=== PATIENT | female | born 1960 | race Caucasian/White ===

== ENCOUNTER 2019-06-23 11:44 | Inpatient (IN) | payer MEDICAID, OTHER ==
[~2019-06-23] VITALS: Ht 172.7 cm; Wt 69.0 kg
[2019-06-23] MEDS ORDERED: SODIUM CHLORIDE 0.9% 1,000 ML IV ONE ×2 (12:10→16:00)
[2019-06-23] MEDS ORDERED: SODIUM CHLORIDE 0.9% 1,000 ML IVB ONE (12:10)
[2019-06-23] MEDS ORDERED: MORPHINE SULFATE 4 MG/ML SYR/VIAL IV ONE (12:15)
[2019-06-23] MEDS ORDERED: ONDANSETRON HCL 4 MG/2 ML VIAL IV ONE (12:15)
[2019-06-23 12:56] LABS: Basophils # (auto) 0 uL; Eosinophils # (auto) 0.1 uL; Lymphocytes # (auto) 1.6 uL; Neutrophils # (auto) 5.1 uL; Red Blood Cells 5.62 10^6/uL (4.0-5.20); White Blood Cell 7.5 10^3/uL (4.4-10.8)
[2019-06-23 12:58] LABS: Basophils % (auto) 0.3 % (0.0-2.0); Eosinophils % (auto) 0.8 % (0.0-7.0); Hematocrit 54.7 % (36.0-46.0); Hemoglobin 18.6 g/dL (12.2-16.2); Lymphocytes % (auto) 21.3 % (10.0-50.0); Mean Corpuscular Hemoglobin 33.2 pg (28.0-32.0); Mean Corpuscular Hgb Conc. 34.1 g/dL (32.0-36.0); Mean Corpuscular Volume 97.3 fL (80.0-100.0); Monocytes # (auto) 0.7 uL; Monocytes % (auto) 9.6 % (0.0-12.0); Nucleated Red Blood Cells % 0.2 %; Platelet Count (auto) 361 10^3/uL (140-450)
[2019-06-23 13:11] LABS: Urine Bacteria NONE SEEN /hpf (None Seen); Urine Blood TRACE /uL (Negative); Urine Hyaline Cast MOD /lpf (0 - 2); Urine Mucus FEW (None Seen); Urine Specific Gravity 1.031 (1.001-1.035); Urine WBC 4 /hpf (0 - 5)
[2019-06-23] MEDS ORDERED: cefTRIAXone W LIDOCAINE 1 GM IM IM ONE (14:30)
[2019-06-23] MEDS ORDERED: cefTRIAXone 1GM/50ML D5W 50 ML IV ONE (14:45)
[2019-06-23] MEDS ORDERED: MORPHINE SULF INJ 2 MG/ML SYRINGE 1ML IV PRN (15:15)
[2019-06-23] MEDS ORDERED: NITROGLYCERIN 0.4 MG SL TAB SL PRN (15:15)
[2019-06-23] MEDS ORDERED: LORazepam 2MG/ML-1ML VIAL IV PRN (15:15)
[2019-06-23] MEDS ORDERED: LORazepam 2MG/ML-1ML VIAL IV ONE (15:15)
[2019-06-23] MEDS ORDERED: ONDANSETRON HCL 4 MG/2 ML VIAL IV PRN (15:15)
[2019-06-23] MEDS ORDERED: LORazepam 2MG/ML-1ML VIAL ONE (15:17)
[2019-06-23] MEDS: SODIUM CHLORIDE 0.9% 1,000 ML IV SCH ×2 (15:30→21:23)
[2019-06-23] MEDS ORDERED: NICOTINE 21MG/24 HR TOPICAL PATCH TD ONE (16:00)
[2019-06-23 16:19] LABS: Amylase 62 U/L (25-115); Anion Gap 12 (5-15); BUN/Creatinine Ratio 16.8; Blood Urea Nitrogen 20 mg/dL (7-18); Calcium 9.7 mg/dL (8.5-10.1); Carbon Dioxide 18 mmol/L (21-32); Chloride 107 mmol/L (98-107); GFR African American 60 mL/min; GFR Non-African American 49 mL/min; Glucose 133 mg/dL (74-106); Lipase 99 U/L (73-393); Sodium 137 mmol/L (136-145)
[2019-06-23 16:22] LABS: Alanine Aminotransferase 40 U/L (13-56); Alkaline Phosphatase 136 U/L (45-117); Aspartate Aminotransferase 35 U/L (15-37); Bilirubin, Total 1.1 mg/dL (0.2-1.0); Total Protein 8.3 g/dL (6.4-8.2)
[2019-06-23 16:25] LABS: Lactic Acid w/Reflex 2.4 mmol/L (0.4-2.0)
--- NOTE | 2019-06-23 20:00 | NUR ---
MS admit from ER CLAIRE NICOLE admitted to tele/MS after SBAR received. Patient oriented to Brittney Owens, RN primary RN, unit, room, bed, and unit policies regarding patient care and visiting hours. Patient weighed by bedscale and encouraged to call if they need something. All questions and concerns addressed, patient verbalized understanding. Note:
[2019-06-23 21:00] VITALS: BP 146/83
--- NOTE | 2019-06-23 21:09 | NUR ---
Clarified order with hospitalist CAROLE Johnson to [facility]
[2019-06-23] MEDS: FAMOTIDINE (10MG/ML) 2ML VL IV SCH (21:23)
--- NOTE | 2019-06-23 23:19 | NUR ---
MED REC Pt unable to recall medication name for arthritis, friend to bring in list tomorrow.
[2019-06-23 23:27] VITALS: BP 146/83
--- NOTE | 2019-06-24 02:04 | NUR ---
Rounds Patient sleeping, respirations even and unlabored on room air, NGT to left nare to LIS, IV fluids running 0.9% NS at 125 ml/hr. No S/S of distress/SOB or pain. Will continue to monitor changes q1hr and PRN. Call light within reach,bed in lowest locked position. Bed alarm on.
[2019-06-24 05:09] VITALS: BP 143/73
[2019-06-24] MEDS: MORPHINE SULF INJ 2 MG/ML SYRINGE 1ML IV PRN ×2 (06:46→15:21)
[2019-06-24] MEDS: SODIUM CHLORIDE 0.9% 1,000 ML IV SCH ×3 (06:47→22:02)
[2019-06-24 07:23] LABS: Basophils # (auto) 0 uL; Basophils % (auto) 0.7 % (0.0-2.0); Eosinophils # (auto) 0.1 uL; Eosinophils % (auto) 2.5 % (0.0-7.0); Hematocrit 46.5 % (36.0-46.0); Hemoglobin 15.5 g/dL (12.2-16.2); Lymphocytes # (auto) 0.7 uL; Lymphocytes % (auto) 17.4 % (10.0-50.0); Mean Corpuscular Hemoglobin 32.8 pg (28.0-32.0); Mean Corpuscular Hgb Conc. 33.3 g/dL (32.0-36.0); Mean Corpuscular Volume 98.7 fL (80.0-100.0); Monocytes # (auto) 0.5 uL; Monocytes % (auto) 13.3 % (0.0-12.0); Neutrophils # (auto) 2.7 uL; Neutrophils % (auto) 66.1 % (37.0-80.0); Platelet Count (auto) 267 10^3/uL (140-450); Red Blood Cells 4.71 10^6/uL (4.0-5.20); Red Cell Distribution Width 14.2 % (11.8-14.3)
[2019-06-24 07:42] LABS: Albumin 3.4 g/dL (3.4-5.0); Calcium 8.7 mg/dL (8.5-10.1); Potassium 3.6 mmol/L (3.5-5.1)
[2019-06-24 07:46] LABS: Bilirubin, Total 0.6 mg/dL (0.2-1.0); Total Protein 6.7 g/dL (6.4-8.2)
--- NOTE | 2019-06-24 08:00 | NUR ---
OPENING SHIFT NOTE ASSUMED CARE OF PT. NO SOB OR SIGNS OF DISTRESS NOTED. INSTRUCTED ON POC AND TO CALL FOR HELP PRN. BED IN LOWEST POSITION WITH SIDE RAILS UP X2. WILL CONTINUE TO MONITOR.
[2019-06-24] MEDS ORDERED: GASTROGRAFIN 120 ML SOL ONE (08:15)
[2019-06-24] MEDS: LORazepam 2MG/ML-1ML VIAL IV PRN ×2 (08:50→18:04)
[2019-06-24 09:00] VITALS: BP 124/77
[2019-06-24] MEDS ORDERED: cefTRIAXone 1GM/50ML D5W 50 ML IV SCH (09:00)
[2019-06-24] MEDS ORDERED: NICOTINE 21MG/24 HR TOPICAL PATCH TD SCH (10:00)
[2019-06-24] MEDS: FAMOTIDINE (10MG/ML) 2ML VL IV SCH ×2 (10:14→22:01)
[2019-06-24 13:00] VITALS: BP 156/79
[2019-06-24 17:00] VITALS: BP 146/79
[2019-06-24 20:00] VITALS: BP 142/66
--- NOTE | 2019-06-24 20:00 | NUR ---
Opening Shift Note Assumed care of patient, patient sleeping, respirations even and unlabored. No S/S of distress/SOB or pain. NG to LIS. Will continue to monitor for changes Q1hr and PRN.
--- NOTE | 2019-06-24 20:05 | NUR ---
Called/paged Dr. Vela called re:report sbo series results per request . Waiting for call back. Continue care.
--- NOTE | 2019-06-24 20:08 | NUR ---
returned call Dr. Vela returned call, updated on results of sbo series, partial sbo, pt had multiple bowel movements today, no orders received. states he tangela see patient tomorrow. Continue care.
[2019-06-24 22:00] VITALS: BP 142/66
--- NOTE | 2019-06-25 01:47 | NUR ---
Patient bathe/linen change Patient given partial bath for bowel incontinence, gown changed. Skin integrity assessed for any changes. Linens changed. Patient repositioned for comfort.
[2019-06-25] MEDS: LORazepam 2MG/ML-1ML VIAL IV PRN (01:54)
[2019-06-25 05:13] VITALS: BP 137/85
[2019-06-25 07:10] LABS: Basophils # (auto) 0 uL; Basophils % (auto) 0.3 % (0.0-2.0); Eosinophils # (auto) 0.2 uL; Eosinophils % (auto) 3.1 % (0.0-7.0); Hematocrit 42.9 % (36.0-46.0); Hemoglobin 14.4 g/dL (12.2-16.2); Mean Corpuscular Hemoglobin 33.4 pg (28.0-32.0); Mean Corpuscular Hgb Conc. 33.6 g/dL (32.0-36.0); Mean Corpuscular Volume 99.2 fL (80.0-100.0); Monocytes # (auto) 0.6 uL; Monocytes % (auto) 13.2 % (0.0-12.0); Neutrophils % (auto) 62.4 % (37.0-80.0); Nucleated Red Blood Cells % 0.1 %; Platelet Count (auto) 263 10^3/uL (140-450); Red Blood Cells 4.32 10^6/uL (4.0-5.20); White Blood Cell 4.8 10^3/uL (4.4-10.8)
[2019-06-25 07:43] LABS: Potassium 3.4 mmol/L (3.5-5.1)
[2019-06-25 07:49] LABS: BUN/Creatinine Ratio 23.8; Calcium 8.8 mg/dL (8.5-10.1); Magnesium 2.6 mg/dL (1.6-2.6)
--- NOTE | 2019-06-25 07:50 | NUR ---
Patient want to go AMA, paper signed by patient, Silvia DOBBINS made aware.
--- NOTE | 2019-06-25 07:53 | NUR ---
Unable to paged Dr. Virgen right now, will paged after 9 AM regarding patient wants to go AMA.
--- NOTE | 2019-06-25 08:27 | NUR ---
AMA Note CLAIRE NICOLE states they want to leave the hospital Against Medical Advice (AMA). Patient encouraged to stay for further treatment/stabilization. Patient advised of the risks and benefits of leaving AMA. Patient verbalized understanding. Patient encouraged to return to the ER if symptoms do not improve or worsen.
--- NOTE | 2019-06-25 09:10 | NUR ---
Dr. Virgen paged regarding patient left AMA, awaiting to call back.
== END 2019-06-25 08:38 | disposition left against medical advice (07) | DRG 247 ==
LOC: ER 11:44 → OVERFLOW 11:45 → WEST WING 20:00
PROVIDERS: ADMIT Nurse Practitioner Acute Care; ATTEND Internal Medicine
DX: K56.600 Partial intestinal obstruction, unspecified as to cause (principal); N17.0 Acute kidney failure with tubular necrosis; N30.00 Acute cystitis without hematuria; E86.0 Dehydration; F41.9 Anxiety disorder, unspecified; Z53.29 Procedure and treatment not carried out because of patient's decision for other reasons; F17.210 Nicotine dependence, cigarettes, uncomplicated; J44.9 Chronic obstructive pulmonary disease, unspecified
CPT/HCPCS: 36415; 71045; 74176; 74250; 80048; 80053; 81001; 82150; 83605; 83690; 83735; 85025; 87040; 87086; 96361; 96365; 96375; G0378; J0696; J2405; J3490

== ENCOUNTER 2020-11-13 23:42 | Inpatient (IN) | payer MEDICAID ==
[~2020-11-13] VITALS: Ht 172.7 cm; Wt 74.2 kg
[2020-11-14 00:21] LABS: Basophils # (auto) 0.1 10 ^3/uL (0-0.2); Basophils % (auto) 0.7 % (0.0-2.0); Eosinophils # (auto) 0.1 10 ^3/uL (0-0.8); Hematocrit 51.7 % (36.0-46.0); Hemoglobin 17.6 g/dL (12.2-16.2); Lymphocytes # (auto) 1.5 10 ^3/uL (0.4-5.4); Lymphocytes % (auto) 15.4 % (10.0-50.0); Mean Corpuscular Hemoglobin 32.8 pg (28.0-32.0); Mean Corpuscular Hgb Conc. 34.1 g/dL (32.0-36.0); Mean Corpuscular Volume 96.2 fL (80.0-100.0); Monocytes # (auto) 0.8 10 ^3/uL (0-1.3); Monocytes % (auto) 8.4 % (0.0-12.0); Neutrophils % (auto) 74.5 % (37.0-80.0); Nucleated Red Blood Cells % 0.1 %; Platelet Count (auto) 353 10^3/uL (140-450); Red Blood Cells 5.37 10^6/uL (4.0-5.20); Red Cell Distribution Width 13.2 % (11.8-14.3); White Blood Cell 9.5 10^3/uL (4.4-10.8)
[2020-11-14 00:37] LABS: Urine Bacteria FEW /hpf (None Seen); Urine Blood 1+ /uL (Negative); Urine Hyaline Cast FEW /lpf (0 - 2); Urine Mucus FEW (None Seen); Urine Specific Gravity 1.026 (1.001-1.035); Urine WBC 4 /hpf (0 - 5)
[2020-11-14 00:38] LABS: Partial Thromboplastin Time 29.6 sec (23.0-31.2)
[2020-11-14 00:59] LABS: Albumin 4.1 g/dL (3.4-5.0); Calcium 9.3 mg/dL (8.5-10.1)
[2020-11-14] MEDS ORDERED: fentaNYL CITRATE 100 MCG/2 ML VL IV ONE (01:15)
[2020-11-14] MEDS ORDERED: ONDANSETRON HCL 4 MG/2 ML VIAL IV ONE (01:15)
[2020-11-14] MEDS ORDERED: SODIUM CHLORIDE 0.9% 1,000 ML IV ONE ×2 (01:15→05:30)
[2020-11-14 01:23] LABS: BUN/Creatinine Ratio 15.1; Bilirubin, Total 0.8 mg/dL (0.2-1.0); Total Protein 7.6 g/dL (6.4-8.2)
[2020-11-14] MEDS: SODIUM CHLORIDE 0.9% 1,000 ML IV SCH ×2 (01:30→12:45)
[2020-11-14] MEDS ORDERED: HYDROmorphone HCL 2 MG/ML VL IV ONE ×2 (03:15)
[2020-11-14] MEDS ORDERED: IOHEXOL 300 MG/ML 100ML BOTTLE IJ ONE (03:17)
[2020-11-14] MEDS ORDERED: MORPHINE SULF INJ 2 MG/ML SYRINGE 1ML IV PRN (07:00)
[2020-11-14] MEDS ORDERED: SODIUM CHLORIDE 0.9% 1,000 ML IV SCH (07:00)
[2020-11-14] MEDS ORDERED: NITROGLYCERIN 0.4 MG SL TAB SL PRN (07:00)
[2020-11-14] MEDS ORDERED: ACETAMINOPHEN 325 MG TAB PO PRN (07:00)
[2020-11-14] MEDS: ONDANSETRON HCL 4 MG/2 ML VIAL IV PRN ×3 (07:37→17:17)
[2020-11-14] MEDS: HYDROmorphone HCL 2 MG/ML VL IV PRN ×4 (07:37→21:20)
[2020-11-14 10:00] VITALS: BP 133/69
[2020-11-14] MEDS ORDERED: PANTOPRAZOLE 40 MG/10 ML VIAL INJ IV SCH (10:00)
[2020-11-14] MEDS ORDERED: ENOXAPARIN SOD 40 MG/0.4 ML SYRINGE SC SCH (10:00)
[2020-11-14] MEDS ORDERED: INFLUENZA QUAD 2020-2021 0.5 ML SYRG IM ONE (10:45)
[2020-11-14 11:00] LABS: Basophils # (auto) 0 10 ^3/uL (0-0.2); Basophils % (auto) 0.3 % (0.0-2.0); Eosinophils # (auto) 0 10 ^3/uL (0-0.8); Eosinophils % (auto) 1.3 % (0.0-7.0); Hematocrit 44.3 % (36.0-46.0); Hemoglobin 15.3 g/dL (12.2-16.2); Lymphocytes # (auto) 0.4 10 ^3/uL (0.4-5.4); Lymphocytes % (auto) 11.3 % (10.0-50.0); Mean Corpuscular Hemoglobin 33.4 pg (28.0-32.0); Mean Corpuscular Hgb Conc. 34.6 g/dL (32.0-36.0); Mean Corpuscular Volume 96.3 fL (80.0-100.0); Monocytes # (auto) 0.5 10 ^3/uL (0-1.3); Monocytes % (auto) 14.2 % (0.0-12.0); Neutrophils # (auto) 2.4 10 ^3/uL (1.6-8.6); Neutrophils % (auto) 72.9 % (37.0-80.0); Nucleated Red Blood Cells % 0.2 %; Platelet Count (auto) 295 10^3/uL (140-450); Red Cell Distribution Width 13.6 % (11.8-14.3); White Blood Cell 3.3 10^3/uL (4.4-10.8)
[2020-11-14 11:04] LABS: Albumin 3.3 g/dL (3.4-5.0); Calcium 8.6 mg/dL (8.5-10.1); Potassium 4.1 mmol/L (3.5-5.1)
[2020-11-14 11:11] LABS: BUN/Creatinine Ratio 16.2; Bilirubin, Total 0.8 mg/dL (0.2-1.0); Total Protein 6.4 g/dL (6.4-8.2)
[2020-11-14] MEDS ORDERED: LORazepam 2MG/ML-1ML VIAL IV ONE (12:30)
[2020-11-14] MEDS ORDERED: GASTROGRAFIN 120 ML SOL ONE (12:51)
[2020-11-14 17:00] VITALS: BP 137/73
[2020-11-14 20:00] VITALS: BP 156/72
[2020-11-14 22:00] VITALS: BP 156/72
[2020-11-15] MEDS: SODIUM CHLORIDE 0.9% 1,000 ML IV SCH (01:30)
[2020-11-15] MEDS: HYDROmorphone HCL 2 MG/ML VL IV PRN (03:10)
[2020-11-15 05:25] VITALS: BP 141/70
[2020-11-15 05:33] LABS: Basophils # (auto) 0 10 ^3/uL (0-0.2); Basophils % (auto) 0.2 % (0.0-2.0); Eosinophils # (auto) 0.2 10 ^3/uL (0-0.8); Eosinophils % (auto) 3.4 % (0.0-7.0); Hemoglobin 14.1 g/dL (12.2-16.2); Lymphocytes % (auto) 17.7 % (10.0-50.0); Mean Corpuscular Hemoglobin 33.9 pg (28.0-32.0); Mean Corpuscular Hgb Conc. 34.4 g/dL (32.0-36.0); Mean Corpuscular Volume 98.5 fL (80.0-100.0); Monocytes # (auto) 0.7 10 ^3/uL (0-1.3); Monocytes % (auto) 11.6 % (0.0-12.0); Neutrophils # (auto) 3.9 10 ^3/uL (1.6-8.6); Neutrophils % (auto) 67.1 % (37.0-80.0); Platelet Count (auto) 256 10^3/uL (140-450); Red Blood Cells 4.17 10^6/uL (4.0-5.20); Red Cell Distribution Width 13.7 % (11.8-14.3); White Blood Cell 5.8 10^3/uL (4.4-10.8)
[2020-11-15 05:55] LABS: Albumin 2.9 g/dL (3.4-5.0); Calcium 8.2 mg/dL (8.5-10.1); Potassium 3.6 mmol/L (3.5-5.1)
[2020-11-15 05:59] LABS: BUN/Creatinine Ratio 16.9; Bilirubin, Total 0.5 mg/dL (0.2-1.0); Total Protein 5.8 g/dL (6.4-8.2)
[2020-11-15 08:53] VITALS: BP 154/65
== END 2020-11-15 09:21 | disposition left against medical advice (07) | DRG 247 ==
LOC: EDBD 23:42 → ER 23:42 → TELE 11-14 07:00 → TELE-CENTR 11-14 09:11
PROVIDERS: ADMIT Nurse Practitioner Family; ATTEND Family Medicine
DX: K56.609 Unspecified intestinal obstruction, unspecified as to partial versus complete obstruction (principal); K76.0 Fatty (change of) liver, not elsewhere classified; F17.210 Nicotine dependence, cigarettes, uncomplicated; Z20.822 Contact with and (suspected) exposure to COVID-19; F41.9 Anxiety disorder, unspecified; K44.9 Diaphragmatic hernia without obstruction or gangrene; Z87.19 Personal history of other diseases of the digestive system; Z91.19 Patient's noncompliance with other medical treatment and regimen; Z90.49 Acquired absence of other specified parts of digestive tract; Z79.899 Other long term (current) drug therapy; Z53.29 Procedure and treatment not carried out because of patient's decision for other reasons
CPT/HCPCS: 36415; 71045; 74018; 74177; 74250; 80053; 81001; 83036; 83605; 85025; 85610; 85730; 87426; 96361; 96374; 96375; C9113; G0378; J2405